=== PATIENT | female | born 1975 | race Two or more races ===

== ENCOUNTER 2024-04-09 09:32 | Emergency (ER) | payer OTHER ==
[~2024-04-09] VITALS: Ht 162.6 cm; Wt 104.3 kg
[2024-04-09 09:49] VITALS: BP 100/69; O2SAT 100
[2024-04-09] MEDS ORDERED: DEXAMETHASONE SODIUM PHOSPHATE 4 MG/ML VIAL IM ONE (10:30)
[2024-04-09] MEDS ORDERED: BUTALB/ACETAMINOPHEN/CAFFEINE 1 TAB TABLET PO ONE (10:30)
[2024-04-09 10:59] LABS: HEMATOCRIT 46.5 % (36.0-45.00); HEMOGLOBIN 15.7 g/dL (12.0-15.00); MEAN CORPUSCULAR HEMOGLOBIN 28.9 pg (27.00-32.0); MEAN CORPUSCULAR HGB CONC 33.6 g/dl (32.0-36.0); PLATELET COUNT 293 K/uL (150-450); RED BLOOD COUNT 5.41 M/uL (4.00-6.00); RED CELL DISTRIBUTION WIDTH 14.4 % (11.5-14.5)
[2024-04-09] MEDS ORDERED: NEURONTIN300 MG PO (11:12)
[2024-04-09] MEDS ORDERED: FAMCICLOVIR500 MG PO (11:12)
== END 2024-04-09 11:29 | disposition home or self-care (01) ==
LOC: ER 09:33
PROVIDERS: General Practice
DX: B02.9 Zoster without complications (principal)

== ENCOUNTER → 2024-04-23 | Emergency (ER) | payer OTHER ==
[~2024-04-23] VITALS: Ht 165.1 cm; Wt 104.3 kg
[~2024-04-23] MED LIST: DIPHENHYDRAMINE HCL 50 MG/ML VIAL 1ML IM ONE; FAMCICLOVIR500 MG PO; METHYLPREDNISOLONE SOD SUCC 40 MG VIAL IM ONE; NEURONTIN300 MG PO
== END | disposition home or self-care (01) ==
LOC: ER 07:54
DX: B02.39 Other herpes zoster eye disease (principal); R21 Rash and other nonspecific skin eruption